=== PATIENT | female | born 1970 | race Caucasian/White ===

== ENCOUNTER 2023-09-22 09:43 | Emergency (ER) | payer SELFPAY ==
[~2023-09-22] VITALS: Ht 154.9 cm; Wt 83.9 kg
[2023-09-22 09:51] VITALS: BP 124/78; PULSE 76; RESP 17; TEMP 97.3; O2SAT 99
[2023-09-22] MEDS ORDERED: KETOROLAC 30 MG/ML VIAL IM ONE (10:25)
[2023-09-22] MEDS ORDERED: ACETAMINOPHEN EXTRA STRENGTH 500 MG TAB PO ONE (10:25)
[2023-09-22] MEDS ORDERED: IBUP-2213 PO (11:21)
== END 2023-09-22 11:55 | disposition home or self-care (01) ==
LOC: MED 09:43
DX: R51.9 Headache, unspecified (principal); Z79.899 Other long term (current) drug therapy
CPT/HCPCS: 96372; 99283; J1885